=== PATIENT | female | born 1955 | race Caucasian/White ===

== ENCOUNTER → 2017-06-23 | Outpatient (CLI) | payer OTHER ==
[~2017-06-23] MED LIST: CYC10 PO; CYCL10TA29 PO; LOR7.5/325 PO; NAP250 PO; ONDA8TAB94 PO; OXYC-865 PO; VENL150C61 PO; VENL75CA58 PO
--- NOTE | 2017-06-26 08:23 | RADIOLOGY IMAGING REPORT ---
FACILITY: [facility] PATIENT NAME: ZEINA HOLGUIN : [id number] MR: [id number] V: [id number] EXAM DATE: [id number] ORDERING PHYSICIAN: FIORDALIZA LUNA TECHNOLOGIST: Judy Soto PROCEDURE:BILATERAL DIGITAL SCREENING MAMMOGRAM WITH CAD ASSISTED INTERPRETATION AND 3D BREAST TOMOSYNTHESIS. COMPARISON:Prior mammograms dated 06/01/16, 06/10/15, 06/09/14, 04/24/12 and 03/30/11. INDICATIONS:SCREENING FINDINGS: Moderately dense, moderately heterogeneous fibroglandular tissue is seen throughout the breasts. The parenchymal pattern has remained stable when allowing for difference in mammographic technique and patient positioning. There is no evidence of malignant appearing mass, malignant appearing calcification or other secondary sign of malignancy in either breast. DIAGNOSTIC CATEGORY 2--BENIGN FINDING. RECOMMENDATIONS: ROUTINE MAMMOGRAM AND CLINICAL EVALUATION. IMPRESSION: BI-RADS 2: No significant abnormality seen. Images were reviewed with R2CAD and 3D breast tomosynthesis. Dictated by: Luna Hart M.D. on 06/23/2017 at 10:16 Transcribed by: KAIN on 06/23/2017 at 15:52 Approved by: Luna Hart M.D. on 06/26/2017 at 8:22 [facility]
== END ==
LOC: MAMO 02:24
PROVIDERS: ATTEND Nurse Practitioner Family
DX: Z12.31 Encounter for screening mammogram for malignant neoplasm of breast (principal)
CPT/HCPCS: 77063; 77067

== ENCOUNTER → 2018-07-05 | Outpatient (CLI) | payer OTHER ==
--- NOTE | 2018-07-11 16:47 | RADIOLOGY IMAGING REPORT ---
FACILITY: [facility] PATIENT NAME: ZEINA HOLGUIN : [id number] MR: [id number] V: [id number] EXAM DATE: [id number] ORDERING PHYSICIAN: FIORDALIZA LUNA TECHNOLOGIST: Marisol Back PROCEDURE:BILATERAL DIGITAL SCREENING MAMMOGRAM WITH CAD ASSISTED INTERPRETATION & 3D TOMOSYNTHESIS COMPARISON:Prior mammograms. INDICATIONS:SCREENING FINDINGS: The breasts are heterogeneously dense. A skin mole is present along the superior aspect of the Right breast. Benign appearing asymmetries are scattered bilaterally, unchanged. DIAGNOSTIC CATEGORY 1--NEGATIVE. RECOMMENDATIONS: ROUTINE MAMMOGRAM AND CLINICAL EVALUATION IN 1 YR. IMPRESSION: BIRADS 1: Negative. Dictated by: Bret Harry M.D. on 07/06/2018 at 13:16 Transcribed by: BABITA on 07/06/2018 at 13:59 Approved by: Luna Hart M.D. on 07/11/2018 at 16:45 [facility]
== END ==
LOC: MAMO 00:41
PROVIDERS: ATTEND Nurse Practitioner Family
DX: Z12.31 Encounter for screening mammogram for malignant neoplasm of breast (principal); Z80.3 Family history of malignant neoplasm of breast
CPT/HCPCS: 77063; 77067